=== PATIENT | female | born 1955 | race Caucasian/White ===

== ENCOUNTER 2016-05-30 08:50 | Emergency (ER) | payer SELFPAY ==
--- NOTE | 2016-05-30 09:41 | ER Document Report ---
ED Skin Rash/Insect Bite/Abscs - General Chief Complaint: Rash Stated Complaint: RASH Notes: Patient found a tick on her left inner thigh 9 days ago and removed it. Yesterday, she developed a rash in that left thigh, but nowhere else. Has not had a fever. Has felt tired and weak. Patient has a history of an essential tremor, on medications. TRAVEL OUTSIDE OF THE [place] IN LAST 30 DAYS: No - Related Data Allergies/Adverse Reactions: No Known Allergies Allergy (Unverified 05/30/16 08:58) Past Medical History - Social History Patient has suicidal ideation: No Patient has homicidal ideation: No Renal/ Medical History: Denies: Hx Peritoneal Dialysis Physical Exam - Vital signs Vitals: Temp Pulse Resp BP Pulse Ox 98.2 F 71 16 134/71 H 100 05/30/16 08:55 05/30/16 08:55 05/30/16 08:55 05/30/16 08:55 05/30/16 08:55 Course - Vital Signs Vital signs: Temp Pulse Resp BP Pulse Ox 98.2 F 71 16 134/71 H 100 05/30/16 08:55 05/30/16 08:55 05/30/16 08:55 05/30/16 08:55 05/30/16 08:55
--- NOTE | 2016-05-30 09:42 | ER Document Report ---
ED Medical Screen (RME) - General Chief Complaint: Rash Stated Complaint: RASH Notes: Patient found a tick on her left inner thigh 9 days ago and removed it. Yesterday, she developed a rash in that left thigh, but nowhere else. Has not had a fever. Has felt tired and weak. Patient has a history of an essential tremor, on medications TRAVEL OUTSIDE OF THE [place] IN LAST 30 DAYS: No - Related Data Allergies/Adverse Reactions: No Known Allergies Allergy (Unverified 05/30/16 08:58) Past Medical History Renal/ Medical History: Denies: Hx Peritoneal Dialysis Physical Exam - Vital signs Vitals: Temp Pulse Resp BP Pulse Ox 98.2 F 71 16 134/71 H 100 05/30/16 08:55 05/30/16 08:55 05/30/16 08:55 05/30/16 08:55 05/30/16 08:55 Course - Vital Signs Vital signs: Temp Pulse Resp BP Pulse Ox 98.2 F 71 16 134/71 H 100 05/30/16 08:55 05/30/16 08:55 05/30/16 08:55 05/30/16 08:55 05/30/16 08:55
--- NOTE | 2016-05-30 10:14 | ER Document Report ---
HPI - HPI Patient complains to provider of: rash proximal medial left thigh Onset: Other - Today Onset/Duration: Sudden Quality of pain: Achy Pain Level: 4 Context: 60-year-old female who had a tick removed 9 days ago from her proximal medial left thigh woke up this morning with a bumpy red rash spreading from the bite site. she is from [place] on and is visiting this area. No fever or chills. Associated Symptoms: None Exacerbated by: Denies Relieved by: Denies Similar symptoms previously: No Recently seen / treated by doctor: No - ROS ROS below otherwise negative: Yes Systems Reviewed and Negative: Yes All other systems reviewed and negative - DERM Skin Color: Normal Past Medical History - General Information source: Patient - Social History Smoking Status: Current Every Day Smoker Chew tobacco use (# tins/day): No Frequency of alcohol use: None Drug Abuse: None Lives with: Family Family History: Reviewed & Not Pertinent Patient has suicidal ideation: No Patient has homicidal ideation: No - Past Medical History Cardiac Medical History: Reports: Hx Hypertension Renal/ Medical History: Denies: Hx Peritoneal Dialysis Psychiatric Medical History: Reports: Hx Depression Surgical Hx: Negative - Immunizations Hx Diphtheria, Pertussis, Tetanus Vaccination: Yes - 2016 Vertical Provider Document - CONSTITUTIONAL Agree With Documented VS: Yes Exam Limitations: No Limitations - INFECTION CONTROL TRAVEL OUTSIDE OF THE [place] IN LAST 30 DAYS: No - HEENT HEENT: Normocephalic - NECK Neck: Supple. negative: Lymphadenopathy-Left, Lymphadenopathy-Right - RESPIRATORY Respiratory: Breath Sounds Normal, No Respiratory Distress O2 Sat by Pulse Oximetry: 100 - CARDIOVASCULAR Cardiovascular: Regular Rate, Regular Rhythm - MUSCULOSKELETAL/EXTREMETIES Musculoskeletal/Extremeties: REEMA GAO - NEURO Level of Consciousness: Awake, Alert, Appropriate - DERM Integumentary: Rash - 14cm pauplar red rash extending from from tick bite site with central clearing Course - Vital Signs Vital signs: Temp Pulse Resp BP Pulse Ox 98.2 F 71 16 134/71 H 100 05/30/16 08:55 05/30/16 08:55 05/30/16 08:55 05/30/16 08:55 05/30/16 08:55 Discharge - Discharge Clinical Impression: Erythema migrans (Lyme disease) Condition: Good Disposition: HOME, SELF-CARE Instructions: Doxycycline ([facility]), Lyme Disease ([facility]), Family Physicians / Practices Additional Instructions: Call me next week on Wednesday for the Lyme disease in [place] spotted fever result at [phone] after 10 AM. Take the doxycycline twice a day for 10 days Return to the emergency room for any changes or new symptoms since sure visiting the area Please complete the patient satisfaction survey if you get one, and return it.. If you do not receive a survey, then you can go to the [facility] website, [email or web address] and place your comments about your very good care. Thank you very much. It was a pleasure being your medical provider today. Prescriptions: Doxycycline Hyclate 100 mg PO BID #20 capsule
[2016-05-30] MEDS ORDERED: DOXYCYCLINE HYCLATE 100 MG TABLET PO ONE (10:18)
[2016-05-30 11:23] VITALS: BP 135/70
[2016-06-02 07:41] LABS: LYME DISEASE IGG AND IGM AB <0.91 ISR (0.00-0.90); ROCKY MTN SPOTTED FEV IGG EIA Negative (Negative)
== END 2016-05-30 11:23 | disposition home or self-care (01) ==
LOC: ER 08:50
DX: A26.0 Cutaneous erysipeloid (principal); A69.20 Lyme disease, unspecified; R21 Rash and other nonspecific skin eruption; F17.200 Nicotine dependence, unspecified, uncomplicated
CPT/HCPCS: 36415; 86617; 86618; 86757; 99283